=== PATIENT | male | born 1980 | race Caucasian/White ===

== ENCOUNTER → 2018-07-01 15:55 | Outpatient (CLI) | payer OTHER, SELFPAY ==
--- NOTE | 2018-07-01 15:58 | DI.RAD.S_ITS ---
PROCEDURE: XR WRIST RT MIN 3V INDICATIONS: Right wrist pain and decreased range of motion TECHNIQUE: 4 views of the wrist were acquired. COMPARISON: None. FINDINGS: Bones: No acute fractures or dislocations. No suspicious bony lesions. 3 mm calcific densities projecting adjacent to the ulnar styloid could represent loose bodies Scaphoid view: Scaphoid appears intact. Soft tissues: No suspicious soft tissue calcifications. IMPRESSION: A pair of presumed 3 mm loose bodies, versus remote fracture fragments, projecting adjacent to the ulnar styloid. Dictated by: Yogesh Osborne M.D. on 07/01/2018 at 17:02 Approved by: Yogesh Osborne M.D. on 07/01/2018 at 17:05
== END ==
PROVIDERS: PCP Family Medicine; Visit Provider Physician Assistant
DX: M25.531 Pain in right wrist (principal)
CPT/HCPCS: 73110

== ENCOUNTER → 2018-10-06 09:44 | Outpatient (CLI) | payer OTHER, SELFPAY ==
--- NOTE | 2018-10-06 09:46 | DI.RAD.S_ITS ---
PROCEDURE: XR KNEE RT 3V INDICATIONS: pain in R knee TECHNIQUE: 3 views of the knee were acquired. COMPARISON: None. FINDINGS: Bones: Postsurgical changes from prior anterior cruciate ligament reconstruction. No fractures or dislocations. No suspicious bony lesions. Soft tissues: No joint effusion. No suspicious soft tissue calcifications. IMPRESSION: Right knee without acute radiographic abnormalities. Dictated by: Ken Spicer M.D. on 10/06/2018 at 11:04 Approved by: Ken Spicer M.D. on 10/06/2018 at 11:05
== END ==
PROVIDERS: PCP Family Medicine; Visit Provider Physician Assistant
DX: M25.561 Pain in right knee (principal)
CPT/HCPCS: 73562